=== PATIENT | male | born 1995 ===

== ENCOUNTER 2021-11-10 10:22 | Emergency (ER) | payer BC, OTHER ==
[~2021-11-10] VITALS: Ht 182.9 cm; Wt 104.3 kg
[2021-11-10 10:24] VITALS: BP 164/86
== END 2021-11-10 14:02 | disposition left against medical advice (07) ==
LOC: ER 10:22
DX: M54.59 Other low back pain (principal); Z53.21 Procedure and treatment not carried out due to patient leaving prior to being seen by health care provider